=== PATIENT | female | born 1990 | race African-American/Black ===

== ENCOUNTER 2016-08-05 21:58 | Emergency (ER) | payer OTHER ==
[2016-08-05 22:03] VITALS: BP 158/107; PULSE 103; TEMP 98.8; BMI 40.1
[2016-08-05] MEDS ORDERED: diphenhydrAMINE HCL 25 MG CAPSULE (FP) PO ONE (22:50)
[2016-08-05] MEDS ORDERED: predniSONE 20 MG TABLET (UD) PO ONE (22:50)
--- NOTE | 2016-08-05 22:50 | PDOC ---
History of Present Illness - General History Source: Patient Exam Limitations: No Limitations - History of Present Illness Initial Comments: 08/05/16 22:56 The patient is a 25 year old female, with a significant past medical history of HTN, diabetes and asthma, who presents to the emergency department with scattered rash since saturday. Patient notes that the rash is itchy and located inside of left, chest, back and inside of both legs. Patient notes that she took benadryl without any relief. She states that on she ate [employer] peanuts that is not unusual for her. She states that she had similar episode last year and was diagnosed with pustular psoriasis She denies any sick contacts or recent travel. She denies chest pain, shortness of breath and headache. She denies chills, diarrhea and constipation. She denies dysuria, urgency and hematuria. Allergies: None Past surgical history: Cyst removal neck, back Social history She denies alcohol, tobacco and drug use PCP - Dr. Jefe Kennedy <Sandie Akhtar - Last Filed: 08/05/16 22:58> <Tracie Seals - Last Filed: 08/06/16 06:41> - General Chief Complaint: Rash Stated Complaint: RASH/JOINT PAIN Time Seen by Provider: 08/05/16 22:27 Past History <Sandie Akhtar - Last Filed: 08/05/16 22:58> - Past Medical History Anemia: No Asthma: Yes Cancer: No Cardiac Disorders: No CVA: No COPD: No CHF: No Dementia: No Diabetes: Yes GI Disorders: No Disorders: No HTN: Yes (non compliant x 1 month) Hypercholesterolemia: No Liver Disease: No Suicide Attempt (Hx): No Seizures: No Thyroid Disease: No - Surgical History Abdominal Surgery: No Appendectomy: No Cardiac Surgery: No Cholecystectomy: No Lung Surgery: No Neurologic Surgery: No Orthopedic Surgery: No - Reproductive History (#): 1 Para: 0 (miscarriage January 2012 lead D&C) - Immunization History Immunization Up to Date: Yes - Psycho/Social/Smoking Cessation Hx Anxiety: No Suicidal Ideation: No Smoking Status: No Smoking History: Never smoked Have you smoked in the past 12 months: No Number of Cigarettes Smoked Daily: 0 'Breaking Loose' booklet given: 09/21/13 Hx Alcohol Use: No Drug/Substance Use Hx: No Substance Use Type: None Hx Substance Use Treatment: No <SealsTracie hurtado - Last Filed: 08/06/16 06:41> - Past Medical History Allergies/Adverse Reactions: Allergies Allergy/AdvReac Type Severity Reaction Status Date / Time No Known Drug Allergies Allergy Verified 08/05/16 22:01 Home Medications: Ambulatory Orders Amlodipine Besylate [Norvasc -] 10 mg PO DAILY 05/11/15 Metformin Xr [Glucophage *Xr* -] 500 mg PO BID 05/11/15 Ondansetron [Zofran Odt -] 4 mg SL TID PRN #14 od.tablet 10/11/15 Diphenhydramine HCl [Benadryl -] 25 mg PO Q6H #28 capsule 08/05/16 Prednisone [Deltasone -] 2 tab PO DAILY #10 tablet 08/05/16 Review of Systems - Review of Systems Able to Perform ROS?: Yes Comments:: 08/05/16 22:57 GENERAL/CONSTITUTIONAL: No fever or chills. No weakness. HEAD, EYES, EARS, NOSE AND THROAT: No change in vision. No ear pain or discharge. No sore throat. CARDIOVASCULAR: No chest pain or shortness of breath. RESPIRATORY: No cough, wheezing, or hemoptysis. GASTROINTESTINAL: No nausea, vomiting, diarrhea or constipation. GENITOURINARY: No dysuria, frequency, or change in urination. MUSCULOSKELETAL: No joint or muscle swelling or pain. No neck or back pain. SKIN: +rash NEUROLOGIC: No headache, vertigo, loss of consciousness, or change in strength/ sensation. ENDOCRINE: No increased thirst. No abnormal weight change. HEMATOLOGIC/LYMPHATIC: No anemia, easy bleeding, or history of blood clots. ALLERGIC/IMMUNOLOGIC: No hives or skin allergy. <Sandie Akhtar - Last Filed: 08/05/16 22:58> *Physical Exam - Vital Signs Last Vital Signs Temp Pulse Resp BP Pulse Ox 98.8 F 103 H 20 158/107 97 08/05/16 22:01 08/05/16 22:01 08/05/16 22:01 08/05/16 22:01 08/05/16 22:01 - Physical Exam Comments: 08/05/16 22:57 Focused exam: GENERAL: Awake, alert, and fully oriented, in no acute distress SKIN: +hives/mosquito like rash on her bilateral inner thigh and left inner arm. Warm, Dry, normal turgor, no lesions noted. <Sandie Akhtar - Last Filed: 08/05/16 22:58> - Vital Signs Last Vital Signs Temp Pulse Resp BP Pulse Ox 98.8 F 103 H 20 158/107 97 08/05/16 22:01 08/05/16 22:01 08/05/16 22:01 08/05/16 22:01 08/05/16 22:01 <Tracie Seals - Last Filed: 08/06/16 06:41> Medical Decision Making - Medical Decision Making 08/06/16 06:40 Pt comes with allergic reaction/bug bites to her thighs. She is morbidly obese and he has HTN. W discussed the need to follow her BP with her PMD. SHe will be treated with benadyl and steroid. SHe is to follow with residence manager and her PMD. <Tracie Seals - Last Filed: 08/06/16 06:41> *DC/Admit/Observation/Transfer - Attestations Scribe Attestion: 08/05/16 22:57 Documentation prepared by RONALD Chandra, acting as lead medical technologist for Tracie Seals MD. <Sandie Akhtar - Last Filed: 08/05/16 22:58> <Tracie Seals - Last Filed: 08/06/16 06:41> Diagnosis at time of Disposition: Eloped - Discharge Dispostion Disposition: ELOPED - Prescriptions Prescriptions: Diphenhydramine HCl [Benadryl -] 25 mg PO Q6H #28 capsule Prednisone [Deltasone -] 2 tab PO DAILY #10 tablet - Referrals Referrals: Jefe Kennedy MD [Primary Care Provider] -
== END 2016-08-05 23:00 | disposition home or self-care (01) ==
LOC: JER 21:58
DX: R21 Rash and other nonspecific skin eruption (principal); I10 Essential (primary) hypertension; E11.9 Type 2 diabetes mellitus without complications; Z79.84 Long term (current) use of oral hypoglycemic drugs; J45.909 Unspecified asthma, uncomplicated; Z91.14 Patient's other noncompliance with medication regimen
CPT/HCPCS: 99281-25

== ENCOUNTER 2017-05-24 23:56 | Emergency (ER) | payer OTHER ==
--- NOTE | 2017-05-25 01:05 | PDOC ---
History of Present Illness <Tracie Seals - Last Filed: 05/25/17 05:06> - History of Present Illness Initial Comments: 05/25/17 01:03 26 yo F with h/o HTN, NIDDM, and asthma who presents with R sided chest pain. Pt. reports 1 week of worsening sharp, spasmodic, chest pain with asx. SOB, Chopra , and cough with clear sputum production. Chest pain worse with deep inhalation. Patient reports paroxysmal nocturnal dyspnea this evening which prompted ED visit. Endorses R sided jaw pain this evening. Denies N/V, F/C, palpitations, wheezing, lightheadedness, weakness, LOC, abdominal pain, urinary complaints, diarrhea, constipation. Denies h/o CAD. Tobacco cessation 3 years ago. Denies duoneb treatment this week. Denies calf pain, leg swelling, hemoptysis, recent traveling/immobilization, surgery or trauma within 6 weeks, or h/o DVT/PE or malignancy. No OCP use. <Marshal Robles - Last Filed: 05/25/17 05:14> - General Stated Complaint: CHEST PAIN Time Seen by Provider: 05/25/17 01:01 Past History <Tracie Seals - Last Filed: 05/25/17 05:06> - Past Medical History Anemia: No Asthma: Yes Cancer: No Cardiac Disorders: No CVA: No COPD: No CHF: No Dementia: No Diabetes: Yes GI Disorders: No Disorders: No HTN: Yes (non compliant x 1 month) Hypercholesterolemia: No Liver Disease: No Seizures: No Thyroid Disease: No - Surgical History Abdominal Surgery: No Appendectomy: No Cardiac Surgery: No Cholecystectomy: No Lung Surgery: No Neurologic Surgery: No Orthopedic Surgery: No - Reproductive History (#): 1 Para: 0 (miscarriage January 2012 lead D&C) - Immunization History Immunization Up to Date: Yes - Suicide/Smoking/Psychosocial Hx Smoking Status: No Smoking History: Never smoked Have you smoked in the past 12 months: No Number of Cigarettes Smoked Daily: 0 'Breaking Loose' booklet given: 09/21/13 Hx Alcohol Use: No Drug/Substance Use Hx: No Substance Use Type: None Hx Substance Use Treatment: No <Marshal Robles - Last Filed: 05/25/17 05:14> - Past Medical History Allergies/Adverse Reactions: Allergies Allergy/AdvReac Type Severity Reaction Status Date / Time No Known Drug Allergies Allergy Verified 05/25/17 01:20 Home Medications: Ambulatory Orders Losartan/Hydrochlorothiazide [Losartan-Hctz 100-12.5 mg Tab] 1 tab PO DAILY Review of Systems - Review of Systems Comments:: 05/25/17 01:04 GENERAL/CONSTITUTIONAL: No fever or chills. No weakness. HEAD, EYES, EARS, NOSE AND THROAT: No change in vision. No ear pain or discharge. No sore throat.- CARDIOVASCULAR: +chest pain and shortness of breath RESPIRATORY: + cough. No wheezing, or hemoptysis. GASTROINTESTINAL: No nausea, vomiting, diarrhea or constipation. GENITOURINARY: No dysuria, frequency, or change in urination. MUSCULOSKELETAL: No joint or muscle swelling or pain. No neck or back pain. SKIN: No rash NEUROLOGIC: No headache, vertigo, loss of consciousness, or change in strength/ sensation. ENDOCRINE: No increased thirst. No abnormal weight change HEMATOLOGIC/LYMPHATIC: No anemia, easy bleeding, or history of blood clots. ALLERGIC/IMMUNOLOGIC: No hives or skin allergy. <Marshal Robles - Last Filed: 05/25/17 05:14> *Physical Exam - Vital Signs Last Vital Signs Temp Pulse Resp BP Pulse Ox 98.4 F 101 H 22 136/93 100 05/25/17 01:15 05/25/17 01:15 05/25/17 01:15 05/25/17 01:15 05/25/17 01:15 <Tracie Seals - Last Filed: 05/25/17 05:06> - Physical Exam Comments: 05/25/17 01:04 GENERAL: Awake, alert, and fully oriented, in no acute distress HEAD: No signs of trauma, normocephalic, atraumatic EYES: PERRLA, EOMI, sclera anicteric, conjunctiva clear ENT: Hearing grossly normal, nares patent, oropharynx clear without exudates. Moist mucosa NECK: Normal ROM, supple, no lymphadenopathy, JVD, or masses LUNGS: No distress, speaks full sentences, clear to auscultation bilaterally HEART: Regular rate and rhythm, normal S1 and S2, no murmurs, rubs or gallops, peripheral pulses normal and equal bilaterally. ABDOMEN: epigatsirc ttp and suprpapubic ttp. Soft, normoactive bowel sounds. No guarding, no rebound. No masses. Neg CVA ttp. EXTREMITIES : Normal inspection, Normal range of motion, no edema. No clubbing or cyanosis. SKIN: Warm, Dry, normal turgor, no rashes or lesions noted. <Marshal Robles - Last Filed: 05/25/17 05:14> ED Treatment Course - LABORATORY CBC & Chemistry Diagram: 05/25/17 01:43 05/25/17 01:43 - ADDITIONAL ORDERS Additional order review: Laboratory Results 05/25/17 05/25/17 05/25/17 01:47 01:43 01:43 D-Dimer 439 Sodium Potassium Chloride Carbon Dioxide Anion Gap BUN Creatinine Creat Clearance w eGFR Random Glucose Calcium Total Bilirubin AST ALT Alkaline Phosphatase Creatine Kinase Troponin I Total Protein Albumin Lipase Serum , Qual Negative Urine Color Ltyellow Urine Appearance Clear Urine pH 5.0 Ur Specific Vickery 1.031 Urine Protein Negative Urine Glucose (UA) 3+ H D Urine Ketones Negative Urine Blood 1+ H Urine Nitrite Negative Urine Bilirubin Negative Urine Urobilinogen Negative Ur Leukocyte Esterase Negative Urine WBC (Auto) 2 Urine RBC (Auto) 4 Ur Epithelial Cells Few 05/25/17 01:43 D-Dimer Sodium 136 Potassium 3.9 Chloride 101 Carbon Dioxide 24 Anion Gap 11 BUN 13 Creatinine 0.8 Creat Clearance w eGFR > 60 Random Glucose 298 H Calcium 8.6 Total Bilirubin 0.4 D AST 19 ALT 31 Alkaline Phosphatase 110 Creatine Kinase 119 Troponin I < 0.02 Total Protein 8.1 Albumin 3.4 Lipase 120 Serum , Qual Urine Color Urine Appearance Urine pH Ur Specific Vickery Urine Protein Urine Glucose (UA) Urine Ketones Urine Blood Urine Nitrite Urine Bilirubin Urine Urobilinogen Ur Leukocyte Esterase Urine WBC (Auto) Urine RBC (Auto) Ur Epithelial Cells 05/25/17 01:43 Influenza Types A,B Antigen ([facility]) - Final Nasopharyngeal Swab - Final 05/25/17 01:43 RBC 5.20 MCV 81.8 MCHC 32.3 RDW 14.9 MPV 9.7 Neutrophils % 41.5 L Lymphocytes % 50.2 H Monocytes % 4.2 Eosinophils % 2.1 Basophils % 2.0 - RADIOLOGY Radiology Studies Ordered: Category Date Time Status CHEST PA & LAT [RAD] Stat Radiology 05/25/17 02:13 Taken - Medications Given in the ED: ED Medications Discontinued Medications Generic Name Dose Route Start Last Admin Trade Name Stan PRN Reason Stop Dose Admin Ibuprofen 600 mg 05/25/17 02:12 05/25/17 02:18 Motrin - PO 05/25/17 02:13 600 mg ONCE ONE Administration <Tracie Seals - Last Filed: 05/25/17 05:06> - LABORATORY CBC & Chemistry Diagram: 05/25/17 01:43 05/25/17 01:43 <Marshal Robles - Last Filed: 05/25/17 05:14> Medical Decision Making - Medical Decision Making 05/25/17 01:27 26 yo F with h/o HTN, NIDDM, and asthma who presents with 1 week of worsening sharp, spasmodic, chest pain with asx. R sided subscapular radiation, SOB, Chopra, and cough with clear sputum production. Chest pain pleuritic and worse with deep inhalation. Also endorses paroxysmal nocturnal dyspnea this evening which prompted ED visit. Denies N/V, F/C, palpitations, wheezing, lightheadedness, weakness, vision change, LOC, abdominal pain, urinary complaints, diarrhea, constipation. Denies h/o CAD. Patient mildly tachycardic 103. Physical exam with suprpapubic tpp and epigastric ttp.+ Reproducible ant chest wall ttp. Patient breathing appears to be labored, although did not appreciate pulm findings and non hypoxic on RA, will consider asthma exaccebration vs. PNA in setting of recent URI type illness. Although low risk Weils criteria, patient pain, risk factors, and tachyardia suspicious for PE. No asx. calf pain, leg swelling, hemoptysis, recent traveling/immobilization, surgery or trauma within 6 weeks, or h/o DVT/PE or malignancy. Differnetial also includes anxiety related disorder, and costochondriits. Will also consider gastritis, GERD, cystitis based on physical exam findings. ED Course: CBC, CMP, Cardiac Profile, Trop, Lipase, BHCG, D-Dimer, Influenza A/B EKG, CXR EKG: NSR with absent STD, ROSA, or TWI. Normal interval duration 05/25/17 02:15 CBC: Unremarkable UA: Neg 05/25/17 03:07 CMP: Unremarkable UA: Neg Trop: Neg CXR: No acute cardiopuolmonary pathology. 05/25/17 05:14 Patient stable and ready for d/c with return precautions. Advised to f/u with PMD. <Marshal Robles - Last Filed: 05/25/17 05:14> *DC/Admit/Observation/Transfer - Discharge Dispostion Admit: No <Tracie Seals - Last Filed: 05/25/17 05:06> - Attestations Physician Attestion: 05/25/17 03:08 I attest to the documentation provided in this note. <Marshal Robles - Last Filed: 05/25/17 05:14> Diagnosis at time of Disposition: Atypical chest pain - Discharge Dispostion Disposition: HOME Condition at time of disposition: Improved - Referrals Referrals: ON STAFF,NOT [Non Staff, Medical] - - Patient Instructions Printed Discharge Instructions: DI for Atypical Chest Pain Additional Instructions: Please return to the emergency department with any new or worsening symptoms or concerns. Please follow up with your primary care physician within one week.
[2017-05-25 01:41] VITALS: BP 136/93; PULSE 101; TEMP 98.4; BMI 39.1
[2017-05-25 01:54] LABS: EOS % 2.1 % (0-4.5); HEMATOCRIT 42.5 % (32.4-45.2); HEMOGLOBIN 13.7 GM/dL (10.7-15.3); LYMPH % 50.2 % (8-40); MCH 26.4 pg (25.7-33.7); MCHC 32.3 g/dl (32.0-36.0); MEAN CELL VOLUME 81.8 fl (80-96); MEAN PLT VOLUME 9.7 fl (7.5-11.1); MONO % 4.2 % (3.8-10.2); NEUT % 41.5 % (42.8-82.8); PLATELET COUNT 212 K/MM3 (134-434); RDW 14.9 % (11.6-15.6); WHITE BLOOD COUNT 8.4 K/mm3 (4.0-10.0)
[2017-05-25 01:55] LABS: URINE APPEARANCE CLEAR; URINE BILIRUBIN NEGATIVE (NEGATIVE); URINE BLOOD 1+ (NEGATIVE); URINE COLOR LTYELLOW; URINE GLUCOSE (UA) 3+ (NEGATIVE); URINE KETONE NEGATIVE (NEGATIVE); URINE LEUK ESTERASE NEGATIVE (NEGATIVE); URINE NITRITE NEGATIVE (NEGATIVE); URINE PROTEIN NEGATIVE (NEGATIVE); URINE UROBILINOGEN NEGATIVE mg/dL (0.2-1.0)
[2017-05-25 02:04] LABS: EPI CELLS FEW /HPF (FEW)
[2017-05-25] MEDS ORDERED: IBUPROFEN 600 MG TABLET (FP) PO ONE ×2 (02:12→02:16)
--- NOTE | 2017-05-25 02:12 | PDOC ---
Attending Attestation - Resident Resident Name: Marshal Robles - ED Attending Attestation I have performed the following: I have examined & evaluated the patient, The case was reviewed & discussed with the resident, I agree w/resident's findings & plan - HPI HPI: 05/25/17 02:10 1 week of chest pain; pleuritic pain. Hx of obesity, DM, HTN and asthma - Physicial Exam PE: 05/25/17 02:11 Agree with resident exam
[2017-05-25 02:17] LABS: LIPASE 120 U/L (73-393)
[2017-05-25 02:50] LABS: ALBUMIN 3.4 g/dl (3.4-5.0); ANION GAP 11 (8-16); BLOOD UREA NITROGEN 13 mg/dL (7-18); CALCIUM 8.6 mg/dL (8.5-10.1); CHLORIDE 101 mmol/L (98-107); CO2 24 mmol/L (21-32); CREATININE 0.8 mg/dL (0.55-1.02); GLUCOSE,RANDOM 298 mg/dL (74-106); POTASSIUM 3.9 mmol/L (3.5-5.1); SGPT/ALT 31 U/L (12-78); SODIUM 136 mmol/L (136-145)
[2017-05-25 02:51] LABS: ALK PHOS 110 U/L (45-117); BILIRUBIN,TOTAL 0.4 mg/dL (0.2-1.0); SGOT/AST 19 U/L (15-37); TOT PROT 8.1 g/dl (6.4-8.2)
--- NOTE | 2017-05-25 12:10 | EKG ---
Test Reason : Blood Pressure : / mmHG Vent. Rate : 090 BPM Atrial Rate : 090 BPM P-R Int : 168 ms QRS Dur : 096 ms QT Int : 366 ms P-R-T Axes : 032 007 025 degrees QTc Int : 447 ms NORMAL SINUS RHYTHM NORMAL ECG WHEN COMPARED WITH ECG OF 30-DEC-2014 06:21, NO SIGNIFICANT CHANGE WAS FOUND Confirmed by MD YONNY, BRENT ([id number]) on 05/25/2017 12:09:27 PM Referred By: Confirmed By:BRENT BLANCAS MD
== END 2017-05-25 05:13 | disposition home or self-care (01) ==
LOC: JER 23:56
DX: R78.9 Finding of unspecified substance, not normally found in blood (principal); I10 Essential (primary) hypertension; Z91.14 Patient's other noncompliance with medication regimen; Z87.09 Personal history of other diseases of the respiratory system
CPT/HCPCS: 36415; 71046-TC; 80053; 81003; 81015; 82550; 83690; 84484; 84703; 85025; 85379; 87804; 93005; 93010; 99282-25

== ENCOUNTER 2017-07-11 23:06 | Emergency (ER) | payer OTHER ==
[2017-07-11 23:20] VITALS: BP 145/93; PULSE 93; TEMP 98.5; BMI 41.5
--- NOTE | 2017-07-12 01:52 | PDOC ---
History of Present Illness - General History Source: Patient, Old Records Exam Limitations: No Limitations - History of Present Illness Initial Comments: 07/12/17 03:37 Patient is a 26 year old female, whose is A1 and 7 weeks , with a significant past medical history of HTN, NIDDM, and asthma who presents to the ED with complaints of right lower quadrant pain that began 1 week ago. Patient reports right lower quadrant pain began last week while at home, stating the pain was an 8/10 in intensity, but is currently a 6/10 in intensity while here in the ED. She reports taking tylenol for the pain but states she has experiencing no relief. Patient states lying on her back offers slight relief to the right lower quadrant but states sitting up increases the pain. She reports experiencing associated symptoms of intermittent headache as well as 3 days of Sob and bilateral calf pain, stating is has recently been difficult to walk up 1 flight of stairs to her apartment. Patient reports experiencing intermittent episodes of nausea and vomiting but states she believes it is due to the . Denies chest pain. Denies fevers, chills. Denies trauma to affected area. Denies contact with sick individuals, out of state travelling. Denies any other symptoms. Allergies: None Social history: No smoking. No alcohol. No illicit drugs. Surgical history: None PMD: Dr. Jefe Kennedy. <Pool Stubbs - Last Filed: 07/12/17 03:37> - General History Source: Patient <Nadeem Eng - Last Filed: 07/12/17 03:38> - General Chief Complaint: Pain Stated Complaint: ABDOMINAL PAIN/7 WKS Time Seen by Provider: 07/12/17 01:47 Past History <Pool Stubbs - Last Filed: 07/12/17 03:37> - Past Medical History Anemia: No Asthma: Yes Cancer: No Cardiac Disorders: No CVA: No COPD: No CHF: No Dementia: No Diabetes: Yes GI Disorders: No Disorders: No HTN: Yes (non compliant x 1 month) Hypercholesterolemia: No Liver Disease: No Seizures: No Thyroid Disease: No - Surgical History Abdominal Surgery: No Appendectomy: No Cardiac Surgery: No Cholecystectomy: No Lung Surgery: No Neurologic Surgery: No Orthopedic Surgery: No - Reproductive History (#): 1 Para: 0 (miscarriage January 2012 lead D&C) - Immunization History Immunization Up to Date: Yes - Suicide/Smoking/Psychosocial Hx Smoking Status: No Smoking History: Never smoked Have you smoked in the past 12 months: No Number of Cigarettes Smoked Daily: 0 Information on smoking cessation initiated: No 'Breaking Loose' booklet given: 09/21/13 Hx Alcohol Use: No Drug/Substance Use Hx: No Substance Use Type: None Hx Substance Use Treatment: No <Nadeem Eng - Last Filed: 07/12/17 03:38> - Past Medical History Allergies/Adverse Reactions: Allergies Allergy/AdvReac Type Severity Reaction Status Date / Time No Known Drug Allergies Allergy Verified 07/11/17 23:17 Home Medications: Ambulatory Orders Losartan/Hydrochlorothiazide [Losartan-Hctz 100-12.5 mg Tab] 1 tab PO DAILY Metoclopramide HCl [Reglan -] 10 mg PO TID #30 tablet 07/12/17 Review of Systems - Review of Systems Able to Perform ROS?: Yes Comments:: 07/12/17 03:37 CONSTITUTIONAL: Absent: fever, no chills, no fatigue EYES: Absent: visual changes ENT: Absent: ear pain, no sore throat CARDIOVASCULAR: Absent: chest pain, no palpitations RESPIRATORY: +Sob. Absent: cough, no SOB GI: +Right lower quadrant pain. +Nausea. +vomiting. Absent: no constipation, no diarrhea GENITOURINARY: Absent: dysuria, no frequency, no hematuria MUSCULOSKELETAL: +Bilateral calf pain. Absent: back pain, no arthralgia, no myalgia SKIN: Absent: rash <Pool Stubbs - Last Filed: 07/12/17 03:37> *Physical Exam - Vital Signs Last Vital Signs Temp Pulse Resp BP Pulse Ox 98.5 F 93 H 18 145/93 99 07/11/17 23:17 07/11/17 23:17 07/11/17 23:17 07/11/17 23:17 07/11/17 23:17 - Physical Exam Comments: 07/12/17 03:37 GENERAL: Well-appearing, well-nourished. No apparent distress. HEENT: Normocephalic, atraumatic. PERRL, EOM intact. CARDIOVASCULAR: Normal S1, S2. Regular rate and rhythm. PULMONARY: Clear to auscultation bilaterally. ABDOMEN: +Mild RLQ tenderness. Soft, non-distended, non-tender. EXTREMITIES: Normal ROM in all four extremities. No gross deformities. SKIN: Warm, dry. No rash NEUROLOGICAL: No focal neurological deficits. <Pool Stubbs - Last Filed: 07/12/17 03:37> - Vital Signs Last Vital Signs Temp Pulse Resp BP Pulse Ox 98.5 F 93 H 18 145/93 99 07/11/17 23:17 07/11/17 23:17 07/11/17 23:17 07/11/17 23:17 07/11/17 23:17 <Nadeem Eng - Last Filed: 07/12/17 03:38> ED Treatment Course - LABORATORY CBC & Chemistry Diagram: 07/12/17 02:22 07/12/17 02:22 - ADDITIONAL ORDERS Additional order review: 07/12/17 02:22 RBC 4.94 MCV 82.0 MCHC 33.2 RDW 16.1 H MPV 9.1 Neutrophils % 56.1 D Lymphocytes % 36.5 D Monocytes % 5.4 Eosinophils % 1.4 Basophils % 0.6 <Pool Stubbs - Last Filed: 07/12/17 03:37> - LABORATORY CBC & Chemistry Diagram: 07/12/17 02:22 07/12/17 02:22 <Nadeem Eng - Last Filed: 07/12/17 03:38> Medical Decision Making - Medical Decision Making 07/12/17 03:28 Dr. Eng: The scribe's documentation has been prepared under my direction and personally reviewed by me in its entirery. I confirm that the note above accurately reflects all work, treatment, procedures, and medical decision making performed by me. <Nadeem Eng - Last Filed: 07/12/17 03:38> *DC/Admit/Observation/Transfer - Attestations Scribe Attestion: 07/12/17 03:38 Documentation prepared by Pool Stubbs, acting as medical assisting instructor for Nadeem Eng MD/DO. <Pool Stubbs - Last Filed: 07/12/17 03:37> - Discharge Dispostion Admit: No <Nadeem Eng - Last Filed: 07/12/17 03:38> Diagnosis at time of Disposition: Abdominal pain Qualifiers: Abdominal location: right lower quadrant Qualified Code(s): R10.31 - Right lower quadrant pain Qualifiers: Weeks of gestation: less than 8 weeks Qualified Code(s): Z3A.01 - Less than 8 weeks gestation of - Discharge Dispostion Disposition: HOME Condition at time of disposition: Stable - Prescriptions Prescriptions: Metoclopramide HCl [Reglan -] 10 mg PO TID #30 tablet - Referrals Referrals: Jefe Kennedy MD [Primary Care Provider] - Hernán Mckinley MD [Staff Physician] - - Patient Instructions Printed Discharge Instructions: DI for -- Discomforts and Remedies - Post Discharge Activity
[2017-07-12 03:16] LABS: BASO % 0.6 % (0-2.0); EOS % 1.4 % (0-4.5); HEMATOCRIT 40.5 % (32.4-45.2); HEMOGLOBIN 13.4 GM/dL (10.7-15.3); LYMPH % 36.5 % (8-40); MCH 27.2 pg (25.7-33.7); MCHC 33.2 g/dl (32.0-36.0); MEAN PLT VOLUME 9.1 fl (7.5-11.1); MONO % 5.4 % (3.8-10.2); NEUT % 56.1 % (42.8-82.8); PLATELET COUNT 251 K/MM3 (134-434); RBC 4.94 M/mm3 (3.60-5.2); RDW 16.1 % (11.6-15.6); WHITE BLOOD COUNT 11.5 K/mm3 (4.0-10.0)
[2017-07-12] MEDS ORDERED: METOCLOPRAMIDE HCL 10 MG TABLET (FP) PO ONE (03:26)
[2017-07-12 03:36] LABS: ALBUMIN 3.3 g/dl (3.4-5.0); ALK PHOS 96 U/L (45-117); ANION GAP 14 (8-16); BILIRUBIN,TOTAL 0.6 mg/dL (0.2-1.0); BLOOD UREA NITROGEN 7 mg/dL (7-18); CALCIUM 9.1 mg/dL (8.5-10.1); CHLORIDE 102 mmol/L (98-107); CO2 21 mmol/L (21-32); CREATININE 0.6 mg/dL (0.55-1.02); GLUCOSE,RANDOM 188 mg/dL (74-106); POTASSIUM 3.8 mmol/L (3.5-5.1); SGOT/AST 13 U/L (15-37); SGPT/ALT 17 U/L (12-78); SODIUM 137 mmol/L (136-145); TOT PROT 7.9 g/dl (6.4-8.2)
== END 2017-07-12 04:14 | disposition home or self-care (01) ==
LOC: JER 23:06
DX: O26.891 Other specified pregnancy related conditions, first trimester (principal); R10.31 Right lower quadrant pain; Z3A.01 Less than 8 weeks gestation of pregnancy; O16.1 Unspecified maternal hypertension, first trimester; O24.911 Unspecified diabetes mellitus in pregnancy, first trimester; O99.511 Diseases of the respiratory system complicating pregnancy, first trimester; Z79.84 Long term (current) use of oral hypoglycemic drugs
CPT/HCPCS: 36415; 76705-TC; 76817-TC; 80053; 84702; 85025; 99281-25

== ENCOUNTER 2017-08-29 18:48 | Emergency (ER) | payer OTHER ==
[2017-08-29 18:56] VITALS: BP 147/93; PULSE 103; TEMP 98.6; BMI 43.0
--- NOTE | 2017-08-29 20:31 | PDOC ---
History of Present Illness - General History Source: Patient Exam Limitations: No Limitations - History of Present Illness Initial Comments: 08/29/17 22:02 The patient is a 26 year old female who is currently 13 weeks , A1, with a significant past medical history of HTN, who presents to the emergency department complaining of congestion, cough, right ear pain, diarrhea, nausea, and vomiting for past 4 days. She denies any vaginal bleeding or discharge. She notes that she has not taken her HTN medications today due to her current symptoms. She describes her diarrhea as nonbloody. The patient denies chest pain, shortness of breath, headache or dizziness. Denies fever, chills, and constipation. Denies dysuria, frequency, urgency and hematuria. Allergies: None Past surgical history: D&C Social History: No alcohol, tobacco or drug use reported <Nadeem Byrd - Last Filed: 08/29/17 22:02> <Alessia Espinoza - Last Filed: 08/30/17 00:06> - General Chief Complaint: Nausea/Vomiting Stated Complaint: COLD SYMPTOMS/13 WKS Time Seen by Provider: 08/29/17 20:07 Past History <Nadeem Byrd - Last Filed: 08/29/17 22:02> - Past Medical History Anemia: No Asthma: Yes Cancer: No Cardiac Disorders: No CVA: No COPD: No CHF: No DVT: No Dementia: No Diabetes: Yes GI Disorders: No Disorders: No HTN: Yes Hypercholesterolemia: No Liver Disease: No Seizures: No Thyroid Disease: No - Surgical History Abdominal Surgery: Yes (d&c) Appendectomy: No Cardiac Surgery: No Cholecystectomy: No Lung Surgery: No Neurologic Surgery: No Orthopedic Surgery: No - Reproductive History (#): 2 Para: 0 Therapeutic (s) & number: No Spontaneous : 1 - Immunization History Immunization Up to Date: Yes - Suicide/Smoking/Psychosocial Hx Smoking Status: No Smoking History: Never smoked Have you smoked in the past 12 months: No Number of Cigarettes Smoked Daily: 0 Information on smoking cessation initiated: No 'Breaking Loose' booklet given: 09/21/13 Hx Alcohol Use: No Drug/Substance Use Hx: No Substance Use Type: None Hx Substance Use Treatment: No <Alessia Espinoza - Last Filed: 08/30/17 00:06> - Past Medical History Allergies/Adverse Reactions: Allergies Allergy/AdvReac Type Severity Reaction Status Date / Time No Known Drug Allergies Allergy Verified 08/29/17 18:52 Home Medications: Ambulatory Orders Labetalol HCl [Normodyne -] 200 mg PO BID 07/22/17 Vit/Iron Fum/Folic AC [ Tablet] 1 each PO DAILY 07/22/17 Amox-Tr/K Cl [Augmentin - 875Mg Tablet] 1 tab PO BID #14 tablet 08/30/17 Review of Systems - Review of Systems Able to Perform ROS?: Yes Comments:: 08/29/17 22:02 GENERAL/CONSTITUTIONAL: No fever or chills. No weakness. HEAD, EYES, EARS, NOSE AND THROAT: (+) Sore throat. Right ear pain. No change in vision. No ear discharge. GASTROINTESTINAL: (+) No vomiting, constipation. GENITOURINARY: No dysuria, frequency, or change in urination. CARDIOVASCULAR: No chest pain or shortness of breath. RESPIRATORY: (+) Cough. No wheezing, or hemoptysis. MUSCULOSKELETAL: No joint or muscle swelling or pain. No neck or back pain. SKIN: No rash NEUROLOGIC: No headache, vertigo, loss of consciousness, or change in strength/ sensation. ENDOCRINE: No increased thirst. No abnormal weight change. HEMATOLOGIC/LYMPHATIC: No anemia, easy bleeding, or history of blood clots. ALLERGIC/IMMUNOLOGIC: No hives or skin allergy. <Nadeem Byrd - Last Filed: 08/29/17 22:02> *Physical Exam - Vital Signs Last Vital Signs Temp Pulse Resp BP Pulse Ox 98.6 F 103 H 18 147/93 100 08/29/17 18:54 08/29/17 18:54 08/29/17 18:54 08/29/17 18:54 08/29/17 18:54 - Physical Exam Comments: 08/29/17 22:02 Constitutional: (+) Obese. Awake, alert, oriented. No acute distress. Head: Normocephalic. Atraumatic Eyes: PERRL. EOMI. Conjunctivae are not pale. ENT: (+) Red posterior oropharynx. Red right TM with effusion of right ear. Mucous membranes are moist and intact. Uvula midline. Neck: Supple. Full ROM. No lymphadenopathy. Cardiovascular: (+) Tachycardia. Regular rhythm. S1, S2 regular. Distal pulses are 2+ and symmetric. Pulmonary/Chest: No evidence of respiratory distress. Clear to auscultation bilaterally No wheezing, rales or rhonchi. Abdominal: Soft and non-distended. There is no tenderness. No rebound, guarding or rigidity. No organomegaly. No palpable masses. Good bowel sounds. Back: No CVA tenderness. Musculoskeletal: No edema. No cyanosis. No clubbing. Full range of motion in all extremities. Nocalf tenderness. Radial/pedal pulses are intact and 2+ bilaterally Skin: Skin is warm and dry. No petechiae. No purpura. Neurological: Alert and oriented to person, place, and time. Cranial nerves II -XII are grossly intact. Normal speech. Strength is grossly symmetric. No sensory deficits. Psychiatric: Good eye contact. Normal interaction, affect and behavior. <Nadeem Byrd - Last Filed: 08/29/17 22:02> - Vital Signs Last Vital Signs Temp Pulse Resp BP Pulse Ox 98.6 F 103 H 18 147/93 100 08/29/17 18:54 08/29/17 18:54 08/29/17 18:54 08/29/17 18:54 08/29/17 18:54 <Alessia Espinoza - Last Filed: 08/30/17 00:06> ED Treatment Course - LABORATORY CBC & Chemistry Diagram: 08/29/17 20:41 08/29/17 20:41 - ADDITIONAL ORDERS Additional order review: Laboratory Results 08/29/17 08/29/17 08/29/17 20:58 20:41 20:41 Sodium Cancelled Potassium Cancelled Chloride Cancelled Carbon Dioxide Cancelled Anion Gap Cancelled BUN Cancelled Creatinine Cancelled Creat Clearance w eGFR Cancelled Random Glucose Cancelled Calcium Cancelled Magnesium Cancelled Total Bilirubin Cancelled AST Cancelled ALT Cancelled Alkaline Phosphatase Cancelled Total Protein Cancelled Albumin Cancelled Lipase Cancelled Beta HCG, Quant Cancelled Urine Color Gala Urine Appearance Cloudy Urine pH 6.0 Ur Specific [place] 1.028 Urine Protein 3+ H Urine Glucose (UA) 1+ H D Urine Ketones Trace H Urine Blood Negative Urine Nitrite Negative Urine Bilirubin Negative Urine Urobilinogen 4.0 e.u/dl H Ur Leukocyte Esterase Negative Urine WBC (Auto) None Urine RBC (Auto) 5 Ur Epithelial Cells Many Calcium Oxalate Crystal Few Urine Bacteria Rare Urine Mucus Few Blood Type Cancelled Antibody Screen Cancelled 08/29/17 20:41 RBC 5.04 MCV 80.9 MCHC 33.3 RDW 15.3 MPV 8.5 Neutrophils % 58.6 D Lymphocytes % 29.8 D Monocytes % 7.0 Eosinophils % 3.9 Basophils % 0.7 - Medications Given in the ED: ED Medications Discontinued Medications Generic Name Dose Route Start Last Admin Trade Name Stan PRN Reason Stop Dose Admin Ondansetron HCl 4 mg 08/29/17 20:33 08/29/17 20:58 Zofran Injection IVPUSH 08/29/17 20:34 4 mg ONCE ONE Administration Sodium Chloride 1,000 ml 08/29/17 20:33 08/29/17 21:57 Normal Saline - IV 08/29/17 20:34 1,000 ml ONCE ONE Administration <Nadeem Byrd - Last Filed: 08/29/17 22:02> - LABORATORY CBC & Chemistry Diagram: 08/29/17 20:41 08/29/17 22:29 <Alessia Espinoza - Last Filed: 08/30/17 00:06> Medical Decision Making - Medical Decision Making 08/29/17 23:02 a/p: 26yo female who is having n/v/d assoc with abd cramping. - at 13wks gestation -states she does have R ear pain, sore throat, cough - yellow sputum no fevers R otitis media on exam - post pharynx with erythema, no exudates lungs cta abd soft, nt/nd no vaginal complaints. follows with [address] no dysuria will obtain labs, (on labetolol for htn), pelvic us will need abx for otitis media and URI 08/29/17 23:52 pt beta >42,000 stable for d/c to home with abx 08/29/17 23:52 has appt for next saturday with Ob.Sonoscope Operator 08/30/17 00:03 pt feeling much better discussed all labs received rhogam with this in june no bleeding today discussed all reasons to return to the ED and need for follow up answered all quesitons <Alessia Espinoza - Last Filed: 08/30/17 00:06> *DC/Admit/Observation/Transfer - Attestations Scribe Attestion: 08/29/17 22:04 Documentation prepared by Nadeem Byrd, acting as medical pathology teacher for Alessia Espinoza DO <Nadeem Byrd - Last Filed: 08/29/17 22:02> - Discharge Dispostion Admit: No - Attestations Physician Attestion: 08/30/17 00:06 I, Dr. Alessia Espinoza, DO, attest that this document has been prepared under my direction and personally reviewed by me in its entirety. I further attest, that it accurately reflects all work, treatment, procedures and medical decision -making performed by me. <Alessia Espinoza - Last Filed: 08/30/17 00:06> Diagnosis at time of Disposition: Diabetes, Otitis media, Upper respiratory infection - Discharge Dispostion Disposition: HOME Condition at time of disposition: Stable - Prescriptions Prescriptions: Amox-Tr/K Cl [Augmentin - 875Mg Tablet] 1 tab PO BID #14 tablet - Referrals Referrals: Jefe Kennedy MD [Primary Care Provider] - - Patient Instructions Printed Discharge Instructions: DI for Nausea -- Adult, DI for Otitis Media ( Middle Ear Infection)-Child, Nausea and Vomiting-Adult, Nausea of ( Alternative Therapy) Additional Instructions: Please take all meds as prescribed. Please return to the ED with any further concerns. Please follow up with your PMD and your accounts receivable representative on saturday as scheduled. - Post Discharge Activity
[2017-08-29] MEDS ORDERED: SODIUM CHLORIDE 0.9% 1000 ML INFUS.BAG IV ONE (20:33)
[2017-08-29] MEDS ORDERED: ONDANSETRON 4 MG/2 ML VIAL IVPUSH ONE (20:33)
[2017-08-29] MEDS ORDERED: ONDANSETRON 4 MG/2 ML VIAL ONE (20:47)
[2017-08-29 20:53] LABS: BASO % 0.7 % (0-2.0); EOS % 3.9 % (0-4.5); HEMATOCRIT 40.7 % (32.4-45.2); HEMOGLOBIN 13.6 GM/dL (10.7-15.3); LYMPH % 29.8 % (8-40); MCH 26.9 pg (25.7-33.7); MCHC 33.3 g/dl (32.0-36.0); MEAN CELL VOLUME 80.9 fl (80-96); MEAN PLT VOLUME 8.5 fl (7.5-11.1); NEUT % 58.6 % (42.8-82.8); PLATELET COUNT 258 K/MM3 (134-434); RBC 5.04 M/mm3 (3.60-5.2); RDW 15.3 % (11.6-15.6); WHITE BLOOD COUNT 7.7 K/mm3 (4.0-10.0)
[2017-08-29] MEDS ORDERED: LABETALOL HCL 200 MG TABLET (FP) PO ONE (20:58)
[2017-08-29 21:12] LABS: URINE APPEARANCE CLOUDY; URINE BILIRUBIN NEGATIVE (<2.0 mg/dL); URINE BLOOD NEGATIVE (NEGATIVE); URINE COLOR AMBER; URINE GLUCOSE (UA) 1+ (NEGATIVE); URINE KETONE TRACE (NEGATIVE); URINE LEUK ESTERASE NEGATIVE (NEGATIVE); URINE NITRITE NEGATIVE (NEGATIVE); URINE UROBILINOGEN 4.0 E.U/dl mg/dL (0.2-1.0)
[2017-08-29 21:18] LABS: URINE PROTEIN 3+ (NEGATIVE)
[2017-08-29 21:24] LABS: CALCIUM OXALATE CRYSTALS FEW /hpf (NONE SEEN); EPI CELLS MANY /HPF (FEW); URINE BACTERIA RARE /hpf (NONE SEEN); URINE MUCUS FEW
[2017-08-29] MEDS ORDERED: AMOX TR/POT CLAV 875MG/125MG TABLETS (FP) PO ONE (21:43)
[2017-08-29] MEDS ORDERED: AMOX TR/POT CLAV 875MG/125MG TABLETS (FP) ONE (22:41)
[2017-08-29] MEDS ORDERED: LABETALOL HCL 100 MG TABLET (FP) ONE (22:42)
[2017-08-29 23:30] LABS: ALBUMIN 3.4 g/dl (3.4-5.0); ANION GAP 11 (8-16); BLOOD UREA NITROGEN 6 mg/dL (7-18); CALCIUM 8.9 mg/dL (8.5-10.1); CHLORIDE 102 mmol/L (98-107); CO2 24 mmol/L (21-32); CREATININE 0.5 mg/dL (0.55-1.02); GLUCOSE,RANDOM 125 mg/dL (74-106); LIPASE 69 U/L (73-393); MAGNESIUM 1.9 mg/dL (1.8-2.4); POTASSIUM 3.5 mmol/L (3.5-5.1); SGOT/AST 14 U/L (15-37); SGPT/ALT 17 U/L (12-78); SODIUM 137 mmol/L (136-145); TOT PROT 8.3 g/dl (6.4-8.2)
[2017-08-29 23:31] LABS: ALK PHOS 85 U/L (45-117); BILIRUBIN,TOTAL 0.5 mg/dL (0.2-1.0)
== END 2017-08-30 00:38 | disposition home or self-care (01) ==
LOC: JER 18:48
PROC: 3E0337Z Introduction of Electrolytic and Water Balance Substance into Peripheral Vein, Percutaneous Approach (ICD-10-PCS; principal; 2017-08-29)
PROC: 3E033GC Introduction of Other Therapeutic Substance into Peripheral Vein, Percutaneous Approach (ICD-10-PCS; 2017-08-29)
DX: O26.891 Other specified pregnancy related conditions, first trimester (principal); Z3A.13 13 weeks gestation of pregnancy; E11.9 Type 2 diabetes mellitus without complications; J06.9 Acute upper respiratory infection, unspecified; H66.90 Otitis media, unspecified, unspecified ear
CPT/HCPCS: 36415; 76801-TC; 80053; 81003; 81015; 83690; 83735; 84702; 85025; 86850; 86900; 86901; 87086; 99283-25; J7030

== ENCOUNTER 2022-04-22 15:52 | Emergency (ER) | payer OTHER ==
[2022-04-22 16:02] VITALS: BMI 36.0
[2022-04-22] MEDS ORDERED: LABETALOL HCL 200 MG TABLET (FP) PO ONE (16:52)
[2022-04-22] MEDS ORDERED: HYDROCHLOROTHIAZIDE 25 MG TABLET (FP) PO ONE (16:52)
[2022-04-22] MEDS ORDERED: SODIUM CHLORIDE 0.9% 500 ML INFUS.BAG IV ONE (16:54)
[2022-04-22] MEDS ORDERED: LABETALOL HCL 100 MG TABLET (FP) ONE (17:10)
[2022-04-22] MEDS ORDERED: HYDROCHLOROTHIAZIDE 25 MG TABLET (FP) ONE (17:10)
[2022-04-22 17:31] LABS: BASO % 1.3 % (0-2.0); EOS % 2.7 % (0-4.5); HEMATOCRIT 42.6 % (32.4-45.2); HEMOGLOBIN 13.8 GM/dL (10.7-15.3); LYMPH % 25.2 % (8-40); MCHC 32.4 g/dl (32.0-36.0); MEAN CELL VOLUME 80.2 fl (80-96); MEAN PLT VOLUME 8.7 fl (7.5-11.1); MONO % 5.4 % (3.8-10.2); NEUT % 65.4 % (42.8-82.8); PLATELET COUNT 282 10^3/uL (134-434); RBC 5.32 M/mm3 (3.60-5.2); RDW 14.7 % (11.6-15.6); WHITE BLOOD COUNT 7.2 K/mm3 (4.0-10.0)
[2022-04-22 17:59] LABS: CHLORIDE 96 mmol/L (98-107); SODIUM 136 mmol/L (136-145)
[2022-04-22 18:01] LABS: CALCIUM 8.8 mg/dL (8.5-10.1)
[2022-04-22 18:02] LABS: ALBUMIN 3.2 g/dl (3.4-5.0); ANION GAP 12 MMOL/L (8-16); BLOOD UREA NITROGEN 7.3 mg/dL (7-18); CO2 28 mmol/L (21-32); GLUCOSE,RANDOM 278 mg/dL (74-106)
[2022-04-22 18:05] LABS: SGOT/AST 22 U/L (15-37); SGPT/ALT 22 U/L (13-61)
[2022-04-22 18:06] LABS: TOT PROT 7.9 g/dl (6.4-8.2)
[2022-04-22 18:07] LABS: BILIRUBIN,TOTAL 0.9 mg/dL (0.2-1)
[2022-04-22 18:08] LABS: ALK PHOS 100 U/L (45-117)
[2022-04-22 18:21] LABS: CREATININE 0.7 mg/dL (0.55-1.3)
[2022-04-22 18:32] VITALS: RESP 20
[2022-04-22 19:58] VITALS: BP 151/100; PULSE 100; TEMP 98.7
== END 2022-04-22 21:01 | disposition home or self-care (01) ==
LOC: JER 15:52
DX: I45.81 Long QT syndrome (principal); J06.9 Acute upper respiratory infection, unspecified
CPT/HCPCS: 0241U-QW; 36415; 71045-TC-FY; 80053; 83735; 84484; 84702; 85025; 93005; 93010; 99285-25

== ENCOUNTER 2024-12-16 08:32 | Emergency (ER) | payer OTHER ==
[2024-12-16 08:42] VITALS: BMI 35.2
[2024-12-16] MEDS ORDERED: METOCLOPRAMIDE HCL INJECTION 10 MG/2 ML VIAL ONE (11:07)
[2024-12-16 11:08] LABS: MCHC 31.4 g/dl (32.2-35.5); MEAN CELL VOLUME 78.5 fl (79.4-94.8); MEAN PLT VOLUME 10.8 fl (9.4-12.3); RDW 14.1 % (12.1-16.8)
[2024-12-16] MEDS: METOCLOPRAMIDE HCL INJECTION 10 MG/2 ML VIAL IVPUSH ONE (11:20)
[2024-12-16] MEDS ORDERED: ACETAMINOPHEN INJECTION 100 ML ONE (11:48)
[2024-12-16] MEDS: ACETAMINOPHEN 1000 MG/100 ML BAG IVPB ONE (11:50)
[2024-12-16 12:11] LABS: ALK PHOS 89.0 U/L (40-150); CO2 20.0 mmol/L (21-32); CREATININE 0.68 mg/dL (0.55-1.3); GLUCOSE,RANDOM 383.0 mg/dL (74-106); SGOT/AST 27.0 U/L (5-34); SGPT/ALT 17.0 U/L (0-55); TOT PROT 7.8 g/dl (6.4-8.2)
[2024-12-16 12:22] LABS: HCV DIAGNOSTIC IN-HOUSE W/RFLX NON-REACTIVE (NONREACTIVE); HIV INTERPRETATION NEGATIVE (NEGATIVE)
[2024-12-16] MEDS ORDERED: INSULIN (NOVOLOG) ASPART 100 UNITS/ML 10ML VIAL SQ ONE (13:57)
[2024-12-16] MEDS ORDERED: KETOROLAC TROMETHAMINE 15 MG/ML VIAL ONE (14:28)
[2024-12-16] MEDS: INSULIN (NOVOLOG) ASPART 100 UNITS/ML 10ML VIAL SQ ONE (14:29)
[2024-12-16] MEDS ORDERED: INSULIN ASPART SLIDING SCALE (NOVOLOG) 1 VIAL SQ ONE (14:29)
[2024-12-16] MEDS: KETOROLAC TROMETHAMINE 15 MG/ML VIAL IVPUSH ONE (14:30)
[2024-12-16 14:33] VITALS: BP 133/91; PULSE 95; RESP 20; TEMP 98.3
== END 2024-12-16 14:40 | disposition home or self-care (01) ==
LOC: JER 08:32
PROC: 3E033NZ Introduction of Analgesics, Hypnotics, Sedatives into Peripheral Vein, Percutaneous Approach (ICD-10-PCS; principal; 2024-12-16)
PROC: 3E033GC Introduction of Other Therapeutic Substance into Peripheral Vein, Percutaneous Approach (ICD-10-PCS; 2024-12-16)
PROC: 3E0333Z Introduction of Anti-inflammatory into Peripheral Vein, Percutaneous Approach (ICD-10-PCS; 2024-12-16)
PROC: 3E033GC Introduction of Other Therapeutic Substance into Peripheral Vein, Percutaneous Approach (ICD-10-PCS; 2024-12-16)
PROC: 3E013VG Introduction of Insulin into Subcutaneous Tissue, Percutaneous Approach (ICD-10-PCS; 2024-12-16)
DX: R07.89 Other chest pain (principal); R51.9 Headache, unspecified; R20.2 Paresthesia of skin; R11.0 Nausea; E11.65 Type 2 diabetes mellitus with hyperglycemia
CPT/HCPCS: 36415; 70450-TC; 80053; 82962; 84484; 84703; 85025; 85379; 86803; 87389; 93005; 93010; 99285-25